=== PATIENT | female | born 1950 | race Caucasian/White ===

== ENCOUNTER → 2017-08-13 | Outpatient (CLI) | payer BC ==
[~2017-08-13] MED LIST: ACET-1966 PO; ADV100/50 INH; ASPI-1441 PO; ATEN1TAB38 PO; ATEN1TAB5 PO; ATOR20TA22 PO; ATOR40TA24 PO; BIOT250012 PO; BIOT25008 PO; BISA-71 PO; CALC-1 PO; CALC-1201 PO; CALC600T72 PO; CYAN100082 PO; DIA10 PO; DIC50 PO; DUL30 PO; DULO30CA35 PO; DULO60CA56 PO; ESC10 PO; ESOM20CA31 PO; FISH OIL1 CAP PO; FLUT16SP19 NS; GAB800PT PO; HYDR4TAB75 PO; LINA290C PO; LOR05 PO; LOR5 PO; LORA-630 PO; LORA-802 PO; MAGN250T5 PO; METXL50 PO; MILK1POW MC; MIR; MORP90CP PO; MULT-820 PO; MULT-865 PO; NAPR-1043 PO; NEB5 PO; OMEG-23 PO; OMEP40CA79 PO; OND4 PO; OTC SLEEP AIDE PO; OXYC20TA86 PO; OXYGENHOME INH; OXYIR PO; PANT40SU3 PO; PRO25 PO; PROAIRPT IH; TELM1TAB20 PO; TELM80TA5 PO; TER20I SC; TIO18R INH; TIZA-1 PO; TIZA4CAP3 PO; VIT; VIT-7 PO; VITE400 PO; ZOLP-350 PO; [UNRECOGNIZED DRUG - CODE] PO; [UNRECOGNIZED DRUG - CODE] PO; [UNRECOGNIZED DRUG - CODE] PO
[2017-08-13 16:39] LABS: PLATELET COUNT, AUTOMATED 231 K/uL (150-450)
--- NOTE | 2017-08-14 08:32 | EKG ---
FACILITY: [facility] - [place] PATIENT NAME: MADY SWAIN : [id number] MR: [id number] V: [id number] EXAM DATE: ORDERING PHYSICIAN: GEOVANNA GONZALEZ TECHNOLOGIST: CLAUDIO Carney Reason : CHEST PAIN Blood Pressure : / mmHG Vent. Rate : 062 BPM Atrial Rate : 062 BPM P-R Int : 206 ms QRS Dur : 078 ms QT Int : 424 ms P-R-T Axes : 066 070 067 degrees QTc Int : 430 ms Normal sinus rhythm Low voltage QRS Borderline ECG When compared with ECG of 23-FEB-2017 00:34, Nonspecific T wave abnormality no longer evident in Anterior leads Referred By: Confirmed By:
== END ==
LOC: LAB 16:12
PROVIDERS: ATTEND Internal Medicine
DX: E05.90 Thyrotoxicosis, unspecified without thyrotoxic crisis or storm (principal); E06.9 Thyroiditis, unspecified; E78.4 Other hyperlipidemia; I10 Essential (primary) hypertension; R07.9 Chest pain, unspecified
CPT/HCPCS: 36415; 82040; 82247; 82310; 82374; 82435; 82565; 82947; 83735; 84075; 84132; 84155; 84295; 84439; 84443; 84450; 84460; 84481; 84520; 85025

== ENCOUNTER → 2017-09-03 | Outpatient (CLI) | payer BC ==
[~2017-09-03] MED LIST changes: +REGADENOSON 0.4 MG/5 ML SYR ONE
--- NOTE | 2017-09-03 16:49 | RADIOLOGY IMAGING REPORT ---
FACILITY: PATIENT NAME: Chani Méndez : 1950 MR: [id number] V: [id number] EXAM DATE: ORDERING PHYSICIAN: GEOVANNA GONZALEZ TECHNOLOGIST: Location: [facility] Patient: Chani Méndez : 1950 Visit/Account:[id number] Date of Sevice: 09/03/2017 EXAMINATION: Single isotope SPECT imaging with regadenoson infusion and gated SPECT imaging. DATE OF EXAMINATION: 09/03/17. DATE OF INTERPRETATION: 09/03/17. REQUESTING PHYSICIAN: GEOVANNA GONZALEZ. INDICATION: The patient is a 67-year-old female evaluated for [chest pain ]. PROCEDURE: After informed consent the patient received an intravenous injection of 12.1 mCi of Tc-99 m sestamibi followed at an appropriate time interval by rest imaging. The patient then subsequently received an intravenous infusion of 0.4 mg of regadenoson per protocol without complication. Resting heart rate was 80 bpm with a peak heart rate of 100 bpm. Blood pressure at rest was 135 / 86 and fo llowing infusion was [149 ] / 86. Baseline EKG demonstrates Normal sinus rhythm. There were no EKG changes of ischemia following infusion. Symptoms were nonspecific. The patient then received an int ravenous injection of 30.4 mCi of Tc-99m sestamibi followed by stress imaging. RAW DATA: Examination of the summed raw data revealed a excellent quality study. No significant stephanie facts. MYOCARDIAL PERFUSION: The tomographic images demonstrate normal myocardial perfusion uptake without ischemia or infarct. No TID. GATED IMAGES: The gated images demonstrate LVEF > 70%. No regional wall motion abnormalities. IMPRESSION: 1. Non-diagnostic pharmacologic stress EKG 2. Normal myocardial perfusion scan. 3. Normal LV systolic function; LVEF >70%. 4. Based on the results of this exam, the patient appears to be at low risk for future cardiovascular events. Report Dictated By: Tyrell Parry at 09/03/2017 4:33 PM Report E-Signed By: Tyrell Parry at 09/03/2017 4:45 PM WSN:[id number]
== END ==
LOC: RESP 00:20
PROVIDERS: ATTEND Internal Medicine
DX: R07.9 Chest pain, unspecified (principal); I10 Essential (primary) hypertension
CPT/HCPCS: 78452; 93017; A9500; J2785

== ENCOUNTER → 2017-09-29 | Outpatient (CLI) | payer BC ==
[~2017-09-29] MED LIST changes: -REGADENOSON 0.4 MG/5 ML SYR ONE
--- NOTE | 2017-09-29 17:41 | RADIOLOGY IMAGING REPORT ---
FACILITY: [facility] PATIENT NAME: Chani Méndez : 1950 MR: [id number] V: [id number] EXAM DATE: ORDERING PHYSICIAN: GEOVANNA GONZALEZ TECHNOLOGIST: Location: [facility] Patient: Chani Méndez : 1950 Visit/Account:[id number] Date of Sevice: 09/29/2017 2 VIEWS CHEST INDICATION: Chest pain contrast breath and chronic cough. COMPARISON: 12/28/2013. FINDINGS: Cardiomediastinal silhouette and pulmonary vessels within normal limits. There is no focal infiltrate or lobar consolidation. There is no pneumothorax or pleural effusion. No nodule. Upper abdomen is unremarkable. No acute bony abnormality. Spinal stabilization with by pedicular scre ws and posterior rods in place. No sequelae. IMPRESSION: 1. No acute cardiopulmonary process. Report Dictated By: Ananda See at 09/29/2017 5:35 PM Report E-Signed By: Ananda See at 09/29/2017 5:37 PM WSN:[id number]
== END ==
LOC: RAD 16:27
PROVIDERS: ATTEND Internal Medicine
DX: R07.9 Chest pain, unspecified (principal); R06.02 Shortness of breath; R05 Cough
CPT/HCPCS: 71046

== ENCOUNTER → 2017-11-04 | Outpatient (CLI) | payer BC | LOC: RESP 01:05 | PROVIDERS: ATTEND Internal Medicine | DX: R05 Cough (principal); R07.9 Chest pain, unspecified; R06.02 Shortness of breath; J98.4 Other disorders of lung | CPT/HCPCS: 94060; 94726; 94729 ==

== ENCOUNTER → 2017-11-14 | Outpatient (CLI) | payer BC ==
[~2017-11-14] MED LIST changes: +ALB18R INH
[2017-11-14 10:24] LABS: PLATELET COUNT, AUTOMATED 240 K/uL (150-450)
[2017-11-14 12:23] LABS: LDL CHOLESTEROL 76 mg/dl
== END ==
LOC: LAB 09:52
PROVIDERS: ATTEND Internal Medicine
DX: R06.02 Shortness of breath (principal); M62.838 Other muscle spasm; I10 Essential (primary) hypertension; E05.90 Thyrotoxicosis, unspecified without thyrotoxic crisis or storm; E78.5 Hyperlipidemia, unspecified
CPT/HCPCS: 36415; 82040; 82247; 82306; 82310; 82374; 82435; 82465; 82565; 82947; 83718; 83735; 84075; 84132; 84155; 84295; 84439; 84443; 84450; 84460; 84478; 84520; 84550; 85025

== ENCOUNTER → 2018-02-25 | Outpatient (CLI) | payer BC ==
[~2018-02-25] MED LIST changes: +ATEN-1 PO; +HYDR12.561 PO; +SERT25TA90 PO
== END ==
LOC: LAB 07:24
PROVIDERS: ATTEND Internal Medicine Endocrinology, Diabetes & Metabolism
DX: E03.9 Hypothyroidism, unspecified (principal); E83.52 Hypercalcemia; T50.905A Adverse effect of unspecified drugs, medicaments and biological substances, initial encounter
CPT/HCPCS: 36415; 82040; 82310; 82374; 82435; 82565; 82947; 84132; 84295; 84439; 84443; 84481; 84520

== ENCOUNTER → 2018-07-30 | Outpatient (CLI) | payer BC ==
[~2018-07-30] MED LIST changes: +ESCI10TA8 PO
[2018-07-30 07:28] LABS: PLATELET COUNT, AUTOMATED 254 K/uL (150-450)
== END ==
LOC: LAB 06:55
PROVIDERS: ATTEND Internal Medicine
DX: M81.0 Age-related osteoporosis without current pathological fracture (principal); E05.90 Thyrotoxicosis, unspecified without thyrotoxic crisis or storm; I10 Essential (primary) hypertension; E78.5 Hyperlipidemia, unspecified
CPT/HCPCS: 36415; 81001; 82040; 82247; 82306; 82310; 82374; 82435; 82465; 82565; 82947; 83036; 83718; 83735; 83970; 84075; 84132; 84155; 84295; 84439; 84443; 84450; 84460; 84478; 84520; 84550; 85025

== ENCOUNTER → 2018-10-13 | Outpatient (CLI) | payer BC ==
[~2018-10-13] MED LIST changes: +ROSU40TA18 PO
--- NOTE | 2018-10-13 14:28 | EKG ---
FACILITY: [facility] PATIENT NAME: MADY SWAIN : [id number] MR: [id number] V: [id number] EXAM DATE: ORDERING PHYSICIAN: FACUNDO FONSECA TECHNOLOGIST: CORONA Test Reason : PRE-OP FOOT Blood Pressure : / mmHG Vent. Rate : 065 BPM Atrial Rate : 065 BPM P-R Int : 194 ms QRS Dur : 078 ms QT Int : 398 ms P-R-T Axes : 042 060 057 degrees QTc Int : 413 ms Normal sinus rhythm Low voltage QRS Borderline ECG When compared with ECG of 13-AUG-2017 16:06, No significant change was found Confirmed by FACUNDO BAEZ ([id number]) on 10/14/2018 6:36:31 AM Referred By: MARIAN Confirmed By:FACUNDO BAEZ
[2018-10-13 14:35] LABS: PLATELET COUNT, AUTOMATED 239 K/uL (150-450)
== END ==
LOC: LAB 13:53
PROVIDERS: ATTEND Anesthesiology
DX: Z01.812 Encounter for preprocedural laboratory examination (principal); Z01.810 Encounter for preprocedural cardiovascular examination; M72.2 Plantar fascial fibromatosis; R94.31 Abnormal electrocardiogram [ECG] [EKG]
CPT/HCPCS: 36415; 82040; 82247; 82310; 82374; 82435; 82565; 82947; 83036; 84075; 84132; 84155; 84295; 84443; 84450; 84460; 84520; 85025; 93005

== ENCOUNTER → 2018-12-16 | Outpatient (CLI) | payer BC ==
--- NOTE | 2018-12-16 11:00 | RADIOLOGY IMAGING REPORT ---
FACILITY: [facility] - [place] PATIENT NAME: Chani Méndez : 1950 MR: [id number] V: [id number] EXAM DATE: ORDERING PHYSICIAN: GEOVANNA GONZALEZ TECHNOLOGIST: Location: [facility] [place] Patient: Chani Méndez : 1950 Visit/Account:[id number] Date of Sevice: 12/16/2018 DEXA Scan 12/16/2018 7:29 AM Clinical history: osteoporosis Comparison: DEXA scan from 09/12/2016. FOREARM: The bone mineral density (BMD) measured in the ULTRADISTAL Left forearm, where trabecular bone predom inates, correlates with a Z-score of 0.1 and a T-score of -1.6 which is osteopenia as defined by the World Health Organization. The corresponding risk of fracture in the distal forearm is 3-4 compared with a young adult reference population. The bone mineral density (BMD) in the MIDSHAFT of the forearm, where cortical bone predominates, jeremy elates with a Z-score of 0.3 and a T-score of -1.4 which is osteopenia as defined by the World Health Organization. The corresponding risk of fracture in the midshaft of the forearm is 2-3 times compare d with a young adult reference population. This value has increased by 3.3 % since the prior study. More than 5% change is considered significant. IMPRESSION: Left Forearm: Osteopenia. There has been no significant change in the bone mineral density since previous exam FRAX? WHO Fracture Risk Assessment Tool link: <http://www.shef.ac.uk/FRAX/tool.jsp?locationValue=9> PLEASE NOTE: 1) The World Health Organization defines low BMD as follows: T-score Normal > -1 Osteopenia < -1 and > -2.5 Osteoporosis < -2.5 without fractures Established osteoporosis < -2.5 with fractures 2) In general, you may wish to consider: Diagnosis Treatment Follow-up DEXA Normal BMD Prevention 2-3 years Osteopenia Prevention/therapy 1-2 years Osteoporosis Therapy Yearly 3) Fracture risk estimated from the T-score is more accurate for vertebral fractures (often spontane ous) than for hip fractures. Report Dictated By: Froylan Le MD at 12/16/2018 10:52 AM Report E-Signed By: Froylan Le MD at 12/16/2018 10:55 AM WSN:[id number]
== END ==
LOC: RAD 12-11 14:14
PROVIDERS: ATTEND Internal Medicine
DX: M85.832 Other specified disorders of bone density and structure, left forearm (principal)
CPT/HCPCS: 77080

== ENCOUNTER → 2018-12-29 | Outpatient (CLI) | payer BC | LOC: LAB 07:24 | PROVIDERS: ATTEND Internal Medicine | DX: M81.0 Age-related osteoporosis without current pathological fracture (principal); I10 Essential (primary) hypertension; E78.5 Hyperlipidemia, unspecified; R73.03 Prediabetes; E83.42 Hypomagnesemia | CPT/HCPCS: 36415; 82040; 82247; 82310; 82374; 82435; 82465; 82565; 82947; 83036; 83718; 83735; 84075; 84132; 84155; 84295; 84450; 84460; 84478; 84520; 84550 ==